=== PATIENT | male | born 1970 | race Caucasian/White ===

== ENCOUNTER 2016-04-04 22:16 | Emergency (ER) | payer OTHER ==
[~2016-04-04] VITALS: Ht 170.2 cm; Wt 104.0 kg
[2016-04-04 22:25] VITALS: TEMP 37.1; Ht 170.2 cm; Wt 104.0 kg
[2016-04-04 22:46] VITALS: O2SAT 96
[2016-04-04] MEDS ORDERED: CLR10 PO (22:53)
[2016-04-04] MEDS ORDERED: SODIUM CHLORIDE 0.9% 1000ML 1,000 ML IV STA (22:53)
[2016-04-04] MEDS ORDERED: SODIUM CHLORIDE 0.9% 500ML 500 ML IV STA (22:53)
[2016-04-04] MEDS ORDERED: FLUT0.15 NAE (22:54)
--- NOTE | 2016-04-04 23:02 | EMERGENCY ROOM VISIT NOTE ---
History Report prepared by Gabo: Guerrero Knight Under the Supervision of: Dr. Kim Boyd M.D. First contact with patient: 22:40 Chief Complaint: VERTIGO Stated Complaint: NEAR SYNCOP, VERTIGO SX History of Present Illness The patient is a 45 year old male who presents to the Emergency Room with complaints of resolved dizziness that occurred earlier this evening. The patient felt like he was going to fall from his chair. He notes that he felt worse after drinking water. The patient was sitting on his couch watching television when he became very dizzy. He has been experiencing intermittent ringing in his ears. The patient also briefly appeared confused to his family. He did not experience any one-sided weakness or palpitations. The patient had an Ibuprofen one hour before the onset of his dizziness because he generally was not feeling well. The patient has had cough and sore throat for two days now. He also has felt "lumps" in his left calf that are painful to touch for the past several days. The patient had a recent three [address] to visit [employer]. He takes OTC Flonase. The patient has a family history of diabetes. He urinates frequently at baseline. The patient has not had his sugar checked in a while. He does not smoke or consume alcohol. Source of History: patient Onset: this evening Position: other (global) Quality: other (dizziness) Timing: resolved Associated Symptoms: + cough, + sorethroat, No weakness Review of Systems See HPI for pertinent positives & negatives. A total of 10 systems reviewed and were otherwise negative. Past Medical & Surgical Medical Problems: (1) H/O multiple allergies Family History Diabetes mellitus Social History Smoking Status: Current Some Day Smoker Alcohol Use: none Housing Status: lives with family Current/Historical Medications Scheduled Amoxicillin & Pot Clavulanate (Augmentin 875-125 mg), 875 MG PO BID Fluticasone Propionate (Nasal) (Flonase Allergy Relief), 1 SPRAY KARINA DAILY Loratadine (Claritin), 10 MG PO DAILY Scheduled PRN Meclizine HCl (Meclizine HCl), 1 TAB PO Q8 PRN for vertigo Physical Exam Vital Signs Date Time Temp Pulse Resp B/P Pulse Ox O2 Delivery O2 Flow Rate FiO2 04/05/16 01:44 78 18 127/78 94 Room Air 04/05/16 00:14 88 14 139/92 98 Room Air 04/04/16 22:46 96 Room Air 04/04/16 22:25 37.1 105 18 164/99 99 Room Air 04/04/16 22:24 94 Physical Exam Vital signs reviewed. General: Well-appearing male, in no significant distress. HEENT: No scleral icterus, PERRLA, neck supple. Atraumatic. bilateral cerumen impaction Cardiovascular: Regular rate and rhythm, no extra sounds. Pulmonary: Clear to auscultation bilaterally, normal work of breathing. Abdomen: Soft, nontender, nondistended, positive bowel sounds. Musculoskeletal: Atraumatic, no peripheral edema. Neurologic: Patient awake alert and oriented x 3, full strength in all 4 extremities. Cranial nerves 2 through 12 grossly intact. No appreciable nystagmus. Cerebellar exam is intact. Skin: Warm, dry, no rash Medical Decision & Procedures ER Provider Diagnostic Interpretation: X-ray results as stated below per my interpretation and radiologist interpretation. Other radiology results as stated below per my review and radiologist interpretation: CHEST X-RAY: Normal mediastinal silhouette. No focal lung consolidations. Slight haziness at the left base, likely secondary to overlying soft tissue. No failure. No pneumothorax. Ultrasound of the left lower extremity reveals no evidence of DVT CT scan of the head reveals no acute intracranial process. Paranasal sinus mucosal disease including mucus retention cyst or polyp within the right maxillary sinus Laboratory Results 04/04/16 23:25 Red Blood Count 4.89, Mean Corpuscular Volume 86.9, Mean Corpuscular Hemoglobin 31.1, Mean Corpuscular Hemoglobin Concent 35.8, Mean Platelet Volume 8.7, Neutrophils (%) (Auto) 58.3, Lymphocytes (%) (Auto) 27.9, Monocytes (%) (Auto) 10.1, Eosinophils (%) (Auto) 3.1, Basophils (%) (Auto) 0.5, Neutrophils # (Auto ) 5.93, Lymphocytes # (Auto) 2.84, Monocytes # (Auto) 1.03, Eosinophils # (Auto ) 0.32, Basophils # (Auto) 0.05 04/04/16 23:25 Test 04/04/16 22:35 04/04/16 23:03 04/04/16 23:25 04/04/16 23:36 Urine Color YELLOW Urine Appearance CLEAR (CLEAR) Urine pH 7.5 (4.5-7.5) Urine Specific [place] 1.009 (1.000-1.030) Urine Protein NEG (NEG) Urine Glucose (UA) NEG (NEG) Urine Ketones NEG (NEG) Urine Occult Blood NEG (NEG) Urine Nitrite NEG (NEG) Urine Bilirubin NEG (NEG) Urine Urobilinogen NEG (NEG) Urine Leukocyte Esterase NEG (NEG) Bedside Glucose 93 mg/dl (70-99) White Blood Count 10.18 K/uL (4.8-10.8) Red Blood Count 4.89 M/uL (4.7-6.1) Hemoglobin 15.2 g/dL (14.0-18.0) Hematocrit 42.5 % (42-52) Mean Corpuscular Volume 86.9 fL (80-100) Mean Corpuscular Hemoglobin 31.1 pg (25-34) Mean Corpuscular Hemoglobin Concent 35.8 g/dl (32-36) Platelet Count 219 K/uL (130-400) Mean Platelet Volume 8.7 fL (7.4-10.4) Neutrophils (%) (Auto) 58.3 % Lymphocytes (%) (Auto) 27.9 % Monocytes (%) (Auto) 10.1 % Eosinophils (%) (Auto) 3.1 % Basophils (%) (Auto) 0.5 % Neutrophils # (Auto) 5.93 K/uL (1.4-6.5) Lymphocytes # (Auto) 2.84 K/uL (1.2-3.4) Monocytes # (Auto) 1.03 K/uL (0.11-0.59) Eosinophils # (Auto) 0.32 K/uL (0-0.5) Basophils # (Auto) 0.05 K/uL (0-0.2) RDW Standard Deviation 40.5 fL (36.4-46.3) RDW Coefficient of Variation 12.6 % (11.5-14.5) Immature Granulocyte % (Auto) 0.1 % Immature Granulocyte # (Auto) 0.01 K/uL (0.00-0.02) Anion Gap 9.0 mmol/L (3-11) Est Creatinine Clear Calc Drug Dose 112.9 ml/min Estimated GFR () 111.0 Estimated GFR (Non- 95.7 BUN/Creatinine Ratio 14.9 (10-20) Calcium Level 8.4 mg/dl (8.5-10.1) Magnesium Level 2.3 mg/dl (1.8-2.4) Total Bilirubin 0.3 mg/dl (0.2-1) Direct Bilirubin < 0.1 mg/dl (0-0.2) Aspartate Amino Transf (AST/SGOT) 22 U/L (15-37) Alanine Aminotransferase (ALT/SGPT) 59 U/L (12-78) Alkaline Phosphatase 64 U/L (45-117) Total Creatine Kinase 152 U/L (39-308) Creatine Kinase MB 1.1 ng/ml (0.5-3.6) Creatine Kinase MB Ratio 0.7 (0-3.0) Total Protein 7.6 gm/dl (6.4-8.2) Albumin 4.0 gm/dl (3.4-5.0) Bedside Troponin I 0.010 ng/ml (0-0.045) Laboratory results per my review. Medications Administered Medications (Trade) Dose Ordered Sig/Daren Route Start Time Stop Time Status Last Admin Dose Admin Sodium Chloride 500 ml @ 999 mls/hr Q31M STAT IV 04/04/16 22:53 04/04/16 23:23 DC 04/04/16 22:53 999 MLS/HR Sodium Chloride (Nss 1000ml) 1,000 ml @ 125 mls/hr Q8H STAT IV 04/04/16 22:53 04/05/16 01:58 DC 04/04/16 22:53 125 MLS/HR Oxymetazoline HCl (Afrin 0.05% Nasal [place]) 2 sprays NOW STAT KARINA 04/05/16 00:19 04/05/16 00:21 DC 04/05/16 00:27 2 SPRAYS Amoxicillin/ Clavulanate Potassium (Augmentin Tab) 875 mg ONE ONCE PO 04/05/16 00:30 04/05/16 00:31 DC 04/05/16 00:27 875 MG Amoxicillin/ Clavulanate Potassium (Augmentin 875MG Home Pack) 1 homepack UD ONCE PO 04/05/16 01:00 04/05/16 01:01 DC 04/05/16 01:10 1 HOMEPACK Meclizine HCl (Antivert 25MG Home Pack) 1 homepack UD ONCE PO 04/05/16 01:00 04/05/16 01:01 DC 04/05/16 01:10 1 HOMEPACK ECG Indication: other (Dizziness) Rate (beats per minute): 88 Rhythm: normal sinus Findings: no acute ischemic change, no ectopy ED Course 2147: Past medical records reviewed. The patient was evaluated in room B2. A complete history and physical examination was performed. 2253: NSS 1000 ml @ 125 mls/hr, NSS 500 ml @ 999 mls/hr. Medical Decision Etiologies such as benign positional vertigo, dehydration, hypovolemia, anemia, tumor, infection, hypoglycemia, electrolyte abnormalities, cardiac sources, intracerebral event, toxicologic, neurologic, as well as others were entertained. This patient was evaluated and appeared to be in no significant distress. Physical examination is fairly unrevealing. Patient is neurologically intact. CT scan of the head reveals no evidence of acute intracranial abnormality, he does have evidence of sinusitis in the retention cyst. The patient was given Afrin nasal spray and Augmentin. The bilateral ear canals were disimpacted by myself. Nursing staff did flush the ears. I did explain my findings and plan to the patient and his family. He was discharged with a prescription for meclizine, Augmentin and given the Afrin nasal spray. He did have improvement in his symptoms and felt comfortable with the plan for outpatient management. He was strongly encouraged to follow-up with ENT as he has had chronic sinus issues. He will establish care with a primary care physician upon return home. He will return to the ER for worsening of symptoms or any medical concerns. Impression Primary Impression: Sinusitis Additional Impressions: Vertigo, Bilateral impacted cerumen Scribe Attestation The scribe's documentation has been prepared under my direction and personally reviewed by me in its entirety. I confirm that the note above accurately reflects all work, treatment, procedures, and medical decision making performed by me. Departure Information Prescriptions Meclizine HCl (Meclizine HCl) 25 Mg Tab 1 TAB PO Q8 Y for vertigo, #20 TAB Prov: Kim Boyd M.D. 04/05/16 Amoxicillin & Pot Clavulanate (Augmentin 875-125 mg) 1 Tab Tab 875 MG PO BID for 10 Days, #20 TAB Prov: Kim Boyd M.D. 04/05/16 Referrals No Doctor, Assigned (PCP) Patient Instructions A Signature Page, [facility]
[2016-04-04 23:42] LABS: BASO % 0.5 %; BASO ABS # 0.05 K/uL (0-0.2); COMPLETE YES; EOS % 3.1 %; HEMATOCRIT 42.5 % (42-52); IG% 0.1 %; LYMPH % 27.9 %; LYMPH ABS # 2.84 K/uL (1.2-3.4); MEAN CELL VOLUME 86.9 fL (80-100); MEAN CORPUSCULAR HEMOGLOBIN 31.1 pg (25-34); MEAN CORPUSCULAR HGB CONC 35.8 g/dl (32-36); MEAN PLATELET VOLUME 8.7 fL (7.4-10.4); MONO % 10.1 %; NEUT % 58.3 %; PLATELET COUNT 219 K/uL (130-400); RED BLOOD COUNT 4.89 M/uL (4.7-6.1); WHITE BLOOD COUNT 10.18 K/uL (4.8-10.8)
[2016-04-05 00:01] LABS: ALT/SGPT 59 U/L (12-78); AST/SGOT 22 U/L (15-37); BLOOD UREA NITROGEN 14 mg/dl (7-18); BUN/CREATININE RATIO 14.9 (10-20); CALCIUM 8.4 mg/dl (8.5-10.1); CARBON DIOXIDE 26 mmol/L (21-32); CHLORIDE 106 mmol/L (98-107); CREATININE 0.96 mg/dl (0.60-1.40); GLUCOSE 95 mg/dl (70-99); MAGNESIUM 2.3 mg/dl (1.8-2.4); POTASSIUM 3.9 mmol/L (3.5-5.1); SODIUM 141 mmol/L (136-145)
[2016-04-05 00:06] LABS: ALKALINE PHOSPHATASE 64 U/L (45-117); CKMB/CK RATIO 0.7 (0-3.0)
[2016-04-05] MEDS ORDERED: OXYMETAZOLINE HCL 0.05% NA SPR 15 ML BTL NAE STA (00:19)
[2016-04-05] MEDS ORDERED: AMOXICILLIN/CLAVULANATE TAB 875 MG TAB PO ONE (00:30)
[2016-04-05] MEDS ORDERED: ANT25 PO (00:43)
[2016-04-05] MEDS ORDERED: AMOX875T PO (00:43)
[2016-04-05 00:44] LABS: URINE APPEARANCE CLEAR (CLEAR); URINE BILIRUBIN NEG (NEG); URINE COLOR YELLOW; URINE NITRITE NEG (NEG); URINE PH 7.5 (4.5-7.5); URINE SPECIFIC GRAVITY 1.009 (1.000-1.030); UROBILINOGEN NEG (NEG); ZZUR CULT IF INDIC CLEAN CATCH NO
[2016-04-05 00:47] LABS: MANUAL MICROSCOPIC REQUIRED? NO; REVIEW REQ? NO
[2016-04-05] MEDS ORDERED: AMOXICIL/CLAVU 875MG HOME PACK PO ONE (01:00)
[2016-04-05] MEDS ORDERED: MECLIZINE HCL 25MG HOME PACK PO ONE (01:00)
[2016-04-05 01:44] VITALS: BP 127/78; PULSE 78; O2SAT 94
--- NOTE | 2016-04-05 07:44 | DIAGNOSTIC IMAGING REPORT ---
CT SCAN OF THE BRAIN WITHOUT IV CONTRAST CLINICAL HISTORY: Vertigo. Confusion. COMPARISON STUDY: No priors. TECHNIQUE: Unenhanced axial CT scan of the brain is performed from the vertex to the skull base. Automated dose control exposure was utilized. The patient was scanned twice due to motion artifact. CT DOSE: 844.62 mGy.cm FINDINGS: Brain parenchyma: The brain parenchyma is normal in appearance. There is no hemorrhage, mass effect, or evidence of acute territorial ischemia by CT criteria. Muller-white matter is preserved. No extra-axial fluid collection is seen. Ventricles, sulci, cisterns: Normal in configuration. Intracranial vasculature: The visualized intracranial vasculature at the skull base is normal in appearance. Calvarium: Unremarkable. Sinuses and mastoids: There is a 2.7 cm retention cyst in the right maxillary antrum. Trace mucosal thickening is seen within the maxillary antra. Moderate mucosal thickening is noted in the ethmoid sinuses. The mastoid air cells are well pneumatized. Orbits: The bony orbits are grossly intact. IMPRESSION: 1. There is no hemorrhage, mass effect, or evidence of acute territorial ischemia by CT criteria. 2. Paranasal sinus disease as above. Electronically signed by: Juan José Hillman M.D. 04/05/2016 7:42 AM
--- NOTE | 2016-04-05 08:12 | DIAGNOSTIC IMAGING REPORT ---
ULTRASOUND LEFT LOWER EXTREMITY VENOUS CLINICAL HISTORY: Left leg pain and swelling. COMPARISON STUDY: No priors. TECHNIQUE: Real-time, grayscale, and color Doppler sonography of the deep veins of the left lower extremity was performed from the inguinal crease to the calf. Compression and augmentation were utilized. FINDINGS: There is no sonographic evidence of deep venous thrombosis identified in the left lower extremity. The common femoral, superficial femoral, and popliteal veins are patent and normally compressible. The greater saphenous vein and the profunda femoris vein at the junction with the common femoral vein are clear. The visualized calf veins are patent. IMPRESSION: There is no sonographic evidence of deep venous thrombosis identified in the left lower extremity. Electronically signed by: Juan José Hillman M.D. 04/05/2016 8:10 AM
--- NOTE | 2016-04-05 08:32 | DIAGNOSTIC IMAGING REPORT ---
SINGLE VIEW CHEST CLINICAL HISTORY: Vertigo. Near syncope. FINDINGS: An AP, portable, upright chest radiograph is obtained. No prior studies are available for comparison at the time of dictation. The examination is mildly degraded by portable technique and patient rotation. The cardiomediastinal silhouette is unremarkable. The lungs and pleural spaces are clear. No pneumothorax is seen. The bony thorax is grossly intact. IMPRESSION: No active disease in the chest. Electronically signed by: Juan José Hillman M.D. 04/05/2016 8:30 AM
== END 2016-04-05 01:15 | disposition home or self-care (01) ==
LOC: C.EDB 22:21
DX: J32.9 Chronic sinusitis, unspecified (principal); R42 Dizziness and giddiness; H61.23 Impacted cerumen, bilateral; F17.210 Nicotine dependence, cigarettes, uncomplicated; J34.1 Cyst and mucocele of nose and nasal sinus